=== PATIENT | female | born 1995 | race African-American/Black ===

== ENCOUNTER 2019-07-12 12:29 | Inpatient (IN) | payer OTHER ==
[~2019-07-12] VITALS: Ht 170.2 cm; Wt 45.8 kg
[2019-07-12 12:33] VITALS: BP 102/75
[2019-07-12 13:46] LABS: CALCIUM 10.2 mg/dL (8.5-10.1); CREATININE 0.8 mg/dL (0.6-1.0); POTASSIUM 4.4 mmol/L (3.5-5.1)
[2019-07-12 13:49] LABS: HEMATOCRIT 20.8 % (37.0-47.0); HEMOGLOBIN 7.1 gm/dL (12.0-15.0); MCH 28.2 pg (26.0-34.0); MCV 82.9 fL (80.0-100.0); PLATELET COUNT 184 thou/uL (150-400); RBC 2.51 mil/uL (4.20-5.00); RDW 22.5 % (10.5-14.5)
[2019-07-12 13:52] LABS: ALBUMIN 5.4 g/dL (3.4-5.0); TOTAL BILIRUBIN 4.5 mg/dL (<0.1-1.0); TOTAL PROTEIN 9.8 g/dL (6.4-8.2)
[2019-07-12 14:23] LABS: ABSOLUTE NEUTROPHILS 11.1 thou/uL (1.4-8.2)
[2019-07-12 14:24] LABS: ANISOCYTOSIS 3+; MACROCYTES 2+; TARGET CELLS 2+
[2019-07-12 14:25] LABS: MICROCYTES 1+
[2019-07-12 14:26] LABS: POLYCHROMASIA 1+
[2019-07-12 15:42] LABS: ABSOLUTE RETIC COUNT 0.2687 10^6/uL; OBSERVED RETIC COUNT 10.53 % (0.6-2.6)
[2019-07-12 15:57] LABS: URINE BILIRUBIN 1+ (Negative); URINE BLOOD 2+ (Negative); URINE CLARITY CLEAR; URINE COLOR YELLOW; URINE GLUCOSE-RANDOM* NEGATIVE (Negative); URINE KETONES TRACE (Negative); URINE LEUKOCYTES NEGATIVE (Negative); URINE NITRITE NEGATIVE (Negative); URINE PROTEIN (DIPSTICK) 1+ (Negative); URINE UROBILINOGEN 0.2 E.U./dl (0.2-1.0)
[2019-07-12 16:00] LABS: DIRECT BILIRUBIN 0.4 mg/dL (<0.1-0.3); TOTAL BILIRUBIN 4.4 mg/dL (<0.1-1.0)
[2019-07-12 16:03] LABS: ICTOTEST (BILI CONFIRMATORY) Positive (Negative)
[2019-07-12 16:06] LABS: SQUAMOUS >10 Many /LPF (0-3)
[2019-07-12 16:07] LABS: MUCUS 0-3 Light strn/LPF (None Seen)
[2019-07-12 16:08] LABS: AMORPHOUS URATES Few /LPF (None Seen); BACTERIA 1-9 Few /HPF (None Seen); CASTS None Seen /LPF (None Seen); CRYSTALS None Seen /LPF (None Seen); URINE RBC None Seen /HPF (0-2); URINE WBC 0-5 Rare /HPF (0-5)
[2019-07-12] MEDS ORDERED: ZOFRAN ODT4 MG DISSOLVE (17:10)
[2019-07-12] MEDS ORDERED: ROXICODONE5 M2 PO (17:10)
[2019-07-12 18:35] LABS: AMP/METHAMP Negative (Negative); BARBITURATES Negative (Negative); BENZODIAZEPINES Negative (Negative); COCAINE Negative (Negative); METHADONE Negative (Negative); OPIATES Negative (Negative); PCP Negative (Negative)
[2019-07-12 18:43] VITALS: BP 97/57
[2019-07-12 19:00] VITALS: BP 94/51
[2019-07-12 20:30] VITALS: BP 101/62
--- NOTE | 2019-07-13 04:31 | NUR ---
PT ARRIVED ON UNIT FROM ER AT 2030. COMES FROM HOME. ADMITTED WITH SICKLE CELL CRISIS. MORPHINE AND PERCOCET AVAILABLE FOR PAIN. DENIES NAUSEA. TRANSFERRING TO BEDSIDE COMMODE WITH ASSIST X1. RESTING COMFORTABLY. NO NEEDS VOICED. CALL LIGHT WITHIN REACH. WILL CONTINUE TO PROVIDE FREQUENT OBSERVATION.
[2019-07-13 05:25] VITALS: BP 93/51
[2019-07-13 05:56] LABS: RDW 23.6 % (10.5-14.5)
[2019-07-13 05:57] LABS: MCHC 35.3 g/dL (28.0-37.0); MCV 82.2 fL (80.0-100.0); RBC 2.16 mil/uL (4.20-5.00); WBC 7.7 thou/uL (4.0-11.0)
[2019-07-13 06:01] LABS: HEMATOCRIT 17.7 % (37.0-47.0); HEMOGLOBIN 6.3 gm/dL (12.0-15.0)
[2019-07-13 07:00] VITALS: BP 100/62
--- NOTE | 2019-07-13 13:03 | NUR ---
ASSUMED CARE AT 0700, SHIFT ASSESSMENT DONE, MEDS GIVEN, VSS. REPORTED ABDOMINAL AND GENERALIZED PAIN, PRN IV AND ORAL PAIN MEDS GIVEN. HGB 6.3, DR SYKES AWARE. NO ORDERS FOR TRANSFUSION. UP WITH STAND BY. DR TRUJILLO SAW THE PT THIS AFTERNOON, WENT FOR PELVIC EXAM. WILL CONTINUE TO ASSESS AND ASSIST WITH ADLs NEEDED.
[2019-07-13 15:30] VITALS: BP 98/54
--- NOTE | 2019-07-13 15:33 | NUR ---
PT ADMITTED RELATED TO SICKLE CELL CRISIS. CM REVIEWED CHART AND SPOKE WITH CARE TEAM. CM MET WITH PT AT BEDSIDE THIS DAY. PT IS A&O X4. CM ROLE INTRODUCED. PT INDICATED THAT SHE LIVES IN A HOUSE WITH HER BOYFRIEND AND HER TWO BOYS. PT INDICATED NO STEPS TO ENTER AND NO STEPS INSIDE. PT INDICATED SHE HAD BEEN INDEPDENENT WITH GAIT AND [employer]. PT INDICATED NO DME OR HH HX. PT INDICATED SHE HAS [employer]URANCE. CM NOTIFIED UR NURSE LORENA AND SHE ASKED THAT ACCOUNT BE UPDATED. PT INDICATED HER PCP IS DARRIUS EDWARD. PT INIDCATED SHE PLANS TO RETURN HOME ONCE MEDICALLY STABLE. CM TO FOLLOW INDICATED WITH DC PLANNING.
--- NOTE | 2019-07-13 18:02 | NUR ---
PATIENT'S IV BLEW THIS AFTERNOON, IV NURSE WAS CALLED. WHEN IV NURSE WENT IN THE ROOM AND USED THE ULTRASOUND TO FIND A VEIN, SHE GOT ONE. IV NURSE MANISH WANTED TO PUT A 20G IN, SHE DID N0T WANT THAT, SO SHE OFFERED A 24G NEEDLE. BUT PT ASKED THE IV NURSE TO WALK OUT OF THE ROOM. THIS NURSE, LUIGI, WENT IN THE ROOM TO TALK TO THE PATIENT AND PATIENT STARTED YELLING AT THIS NURSE, AND KEPT YELLING CONTINUOSULY. THIS NURSE WALKED OUT OF THE ROOM, DR SYKES WAS NOTIFIED, HE IS OK WITH PT NOT HAVING A IV, AND INDICATED IF PT CONTINUES TO MISBEHAVE, SHE CAN LEAVE AMA.
[2019-07-13 20:16] VITALS: BP 107/64
--- NOTE | 2019-07-14 03:39 | NUR ---
Assumed pt care at 1900. A/OX4,VSS. Pt c/o generalized aches allover on assessment LOP 10.Did agree IV to be reinserted,24 gauge started on RFA with one attempt and IV fluids restarted. Medicated for pain per EMAR with some relief reported. SBA with ADLs.Fall precautions implemented and pt agrees to call for help. Resting quietly at this time will continue to monitor.
[2019-07-14 04:53] VITALS: BP 150/96
[2019-07-14 05:49] LABS: MCH 28.9 pg (26.0-34.0); MCHC 34.1 g/dL (28.0-37.0); MCV 84.7 fL (80.0-100.0); RBC 1.9 mil/uL (4.20-5.00); RDW 24.9 % (10.5-14.5); WBC 14.4 thou/uL (4.0-11.0)
[2019-07-14 05:54] LABS: HEMATOCRIT 16.1 % (37.0-47.0); HEMOGLOBIN 5.5 gm/dL (12.0-15.0)
[2019-07-14 07:39] VITALS: BP 98/58
[2019-07-14] MEDS ORDERED: OXYCODONE HCL10 MG PO (09:23)
[2019-07-14 10:04] VITALS: BP 98/58
--- NOTE | 2019-07-14 10:07 | NUR ---
Initially low BMI however 101 lb bedscale error, reweigh 120 lb which pt states is closer wt for her. Eating 50-80%. Probable discharge today. Low nutrition risk
[2019-07-14 10:17] VITALS: BP 98/58
--- NOTE | 2019-07-14 11:07 | NUR ---
PT A&OX4. IV INTACT IN R FA, PT REFUSED TO HAVE A 22G PLACED. HEMABLOBIN 5.5 THIS AM , ONLY 24G IN PLACED. NOTIFIED AND ASKED FOR PICC LINE ORDER. UNIT OF [facility] HAS BEEN CANCELLED AND PT IS BEING DC'D. DR. BARTON IN THIS AM AND SUGGESTEDPT TO F/U WITH MOTHER- MEDICINE WITH [facility], SUGGESTED EVEN [facility] OR [facility] WILL BENEFICIAL. DC INSTRUCTIONS/ F/U APPOINT. AND SCRIPT REVIEWED WITH PT. IV REMOVED FROM R FA, PT ESCORTED BY VOLUNTEER IN W/C TO MAIN ENTRANCE.
[2019-07-15 17:07] LABS: HGB SOLUBILITY Positive (Negative); Hgb S 84.4 % (0.0)
== END 2019-07-14 11:07 | disposition home or self-care (01) | DRG 812 ==
LOC: ER 12:29 → EROBS 17:58 → 4E 17:58 → ENTRNSPT 07-14 10:52 → EDTRNSPTSTS 07-14 10:54 → 4E 07-14 11:07
PROVIDERS: Emergency Medicine; ADMIT Hospitalist
PROC: 2W3QX1Z Immobilization of Right Lower Leg using Splint (ICD-10-PCS; principal; 2019-07-12)
DX: D57.00 Hb-SS disease with crisis, unspecified (principal); M25.50 Pain in unspecified joint; E80.6 Other disorders of bilirubin metabolism; N92.0 Excessive and frequent menstruation with regular cycle; D63.8 Anemia in other chronic diseases classified elsewhere; F12.10 Cannabis abuse, uncomplicated; E86.0 Dehydration; Z91.018 Allergy to other foods
CPT/HCPCS: 10084